=== PATIENT | male | born 1995 | race African-American/Black ===

== ENCOUNTER 2021-05-25 20:03 | Emergency (ER) | payer OTHER ==
[~2021-05-25] VITALS: Ht 170.2 cm; Wt 69.0 kg
[2021-05-25 20:38] LABS: ABSOLUTE NEUTROPHILS 4.8 thou/uL (1.4-8.2); BASOPHILS 0.9 % (0.0-2.0); EOSINOPHILS 2.8 % (0.0-3.0); HEMATOCRIT 42.5 % (42.0-52.0); HEMOGLOBIN 14.8 gm/dL (14.0-18.0); LYMPHOCYTES 24.6 % (24.0-44.0); MCH 28.6 pg (26.0-34.0); MCHC 34.8 g/dL (28.0-37.0); MCV 82.2 fL (80.0-100.0); MONOCYTES 7.2 % (1.0-8.0); PLATELET COUNT 200 thou/uL (150-400); POLYS 64.5 % (36.0-66.0); RBC 5.17 mil/uL (4.50-6.00); RDW 13.8 % (10.5-14.5); WBC 7.5 thou/uL (4.0-11.0)
[2021-05-25 20:46] LABS: ANION GAP 11 mmol/L (7-16); BUN 12 mg/dL (7-18); CALCIUM 9.1 mg/dL (8.5-10.1); CHLORIDE 104 mmol/L (98-107); CO2 27 mmol/L (21-32); CREATININE 1.5 mg/dL (0.7-1.3); GLUCOSE 143 mg/dL (74-106); POTASSIUM 3.6 mmol/L (3.5-5.1); SODIUM 142 mmol/L (136-145)
[2021-05-25 20:56] LABS: SGOT 19 U/L (15-37); SGPT 19 U/L (30-65); TOTAL BILIRUBIN 0.4 mg/dL (0.2-1.0); TOTAL PROTEIN 7.6 g/dL (6.4-8.2); TROPONIN-I <0.06 ng/mL (<0.06)
[2021-05-25 22:09] LABS: AMP/METHAMP Negative (Negative); BARBITURATES Negative (Negative); BENZODIAZEPINES Negative (Negative); COCAINE Negative (Negative); METHADONE Negative (Negative); OPIATES Negative (Negative); PCP Negative (Negative)
[2021-05-25 22:51] VITALS: BP 125/48
--- NOTE | 2021-05-26 08:46 | EKG ---
[address] [address] ELECTROCARDIOGRAM REPORT Name: KEARA ROGERS Room #: DEP Ayad#: [id number] Admission: 05/25/21 Attend Phys: Discharge: 05/25/21 Date of : [birth year] Report #: [id number] [facility] ED Test Date: 2021-05-25 Test Time: 20:09:41 Pat Name: KEARA ROGERS Department: Room: Gender: Rn Primary Care: LAUREL : 1995 Requested By: Rohit Wasserman Order Number: [id number] MD: Erasmo Forbes Measurements Intervals [place] Rate: 132 P: 51 AK: 150 QRS: 46 QRSD: 82 T: 25 QT: 285 QTc: 423 Interpretive Statements Sinus tachycardia No previous ECG available for comparison Electronically Signed On 05-26-2021 8:46:08 CDT by Erasmo Forbes [email or web address] <ELECTRONICALLY SIGNED> By: Erasmo Forbes MD, [facility] 05/26/21 0846 08 08 Erasmo Forbes MD, FACC /EPI
== END 2021-05-25 22:52 | disposition home or self-care (01) ==
LOC: ER 20:03
PROVIDERS: Emergency Medicine
DX: R00.2 Palpitations (principal); F19.10 Other psychoactive substance abuse, uncomplicated; J45.909 Unspecified asthma, uncomplicated; Z88.0 Allergy status to penicillin